=== PATIENT | male | born 1970 | race Hispanic/Latino ===

== ENCOUNTER 2023-01-15 08:29 | Observation (INO) | payer SELFPAY ==
[2023-01-15] VITALS (11 sets, daily range): BP systolic 143–173; BP diastolic 87–117
[~2023-01-15] VITALS: Ht 175.3 cm; Wt 88.0 kg
[~2023-01-15 08:29] MED LIST: PROTONIX40 MG PO
--- NOTE | 2023-01-15 08:29 | NUR ---
PATIENT PRESENTS WITH LEFT SIDED FACIAL NUMBNESS ALONG WITH WEAKNESS IN THE UPPER AND LOWER EXTREMITIES ON THE LEFT SDIDE. SN CALLED STROKE ALERT AT THIS TIME. MD AT THE BEDSIDE.
--- NOTE | 2023-01-15 08:35 | NUR ---
STROKE ALERT CALLED AND PATIENT TAKEN TO CT SCAN.
--- NOTE | 2023-01-15 09:10 | NUR ---
PATIENT RETURNED TO THE ED AT THIS TIME. SWALLOW SCREEN TO BE COMPLETED. EKG DONE AT THIS TIME.
[2023-01-15 09:17] LABS: ALBUMIN 4.6 g/dL (3.2-5.0); ALKALINE PHOSPHATASE 53 u/l (38-126); ANION GAP 13 (6-22 (CALC)); BILIRUBIN, TOTAL 1.4 mg/dL (0.2-1.3); BUN 7 mg/dL (9-20); BUN/CREATININE RATIO 8 (12-20 (CALC)); CALCULATED LDLCHOLESTEROL 119 mg/dL (62-129 (CALC)); CARBON DIOXIDE 27 mmol/l (22-30); CHLORIDE 105 mmol/l (95-108); CHOLESTEROL HDL RATIO 7.5 (<4.4 (CALC)); GFR FOR AFR.AMER. > 60 ML/MIN (>=60 (CALC)); GFR OTHER RACES > 60 ML/MIN (>=60 (CALC)); HDL CHOLESTEROL 30 mg/dL (39.0-59.0); SGOT/AST 52 u/l (17-59); SODIUM 141 mmol/l (137-146); TOTAL CHOLESTEROL 227 mg/dl (0-199); TOTAL PROTEIN 8.5 g/dL (6.3-8.2); TOTAL TRIGLYCERIDES 388 mg/dl (0-149); VLDL CHOLESTROL 78 mg/dl (8-62 (CALC))
[2023-01-15 09:26] LABS: INTERNATIONAL NORMALIZED RATIO 1.1 RATIO (0.7-1.3); PROTHROMBIN TIME 10.4 SECONDS (9.0-12.5)
[2023-01-15] MEDS ORDERED: SYNTHROID88 MCG PO (09:31)
[2023-01-15 09:36] LABS: BASO% 0.6 % (0-3); HEMATOCRIT 45.4 % (39.0-50.0); HEMOGLOBIN 15.7 g/dl (14.0-18.0); IMMATURE GRANULOCYTES 0.2 % (0.0-5.0); LYMPH% 36.4 % (15-41); MEAN CELL VOLUME 90.8 fL CALC (80.0-100.0); MEAN CORPUSCULAR HGB 31.4 pG CALC (26.0-32.0); MEAN CORPUSCULAR HGB CONC 34.6 g/dL CAL (32.0-36.0); MONO% 9.5 % (2-13); NEUT# 2.65 thou/uL (1.82-7.42); NEUT% 50.3 % (42-76); RED CELL DISTRI WIDTH 12.2 % (11.5-15.5)
--- NOTE | 2023-01-15 11:22 | NUR ---
VERBAL REPORT GIVEN TO KELLEY GUZMAN. PATIENT PLACED IN A WHEELCHAIR AND TAKEN TO MED-SURG
--- NOTE | 2023-01-15 11:22 | NUR ---
REPORT RECIEVED FROM INSPECTOR AND CLERKTHOMAS ALLEN
[2023-01-15 11:36] LABS: URINE BILIRUBIN - DIPSTICK Negative (NEGATIVE); URINE BLOOD DIPSTICK Negative (NEGATIVE); URINE GLUCOSE - DIPSTICK Negative (NEGATIVE); URINE KETONE Negative (NEGATIVE); URINE LEUK ESTERASE Negative (NEGATIVE); URINE NITRITE - DIPSTICK Negative (Negative); URINE PH 6.5 (4.5-8.0); URINE PROTEIN - DIPSTICK Negative (NEG-TRACE); URINE UROBILINOGEN - DIPSTICK 0.2 E.U./dL (0.2)
[2023-01-15 11:37] LABS: URINE COLOR Yellow
--- NOTE | 2023-01-15 11:39 | NUR ---
PT ARRIVED VIA WC WITH [employer] SUPERVISOR KITAOMNI PT ABLE TO AMBULATE TO BED VIA STAND BY. ORIENATTED PT TO ROOM AND CALL [facility]. ADMISSON ASSESSMENT COMNPLETED. TELE MONITO RIN PLACE. CONTINOUS MONITPR PER ED. FALL/SAFTEY PRECAUTION IN PLACE. CALL LIGHT WITHIN REACH
--- NOTE | 2023-01-15 16:05 | NUR ---
PT RESTING IN BED WITH FAMILY MEMBERS AT BEDSIDE. PT STATES NO PAIN. FALL/SAFTEY PRECAUTION IN PLACE, CALL LIGHT WITHIN REACH
--- NOTE | 2023-01-15 19:15 | NUR ---
REPORT RECEIVED FROM FROM Lb BUSH RN
--- NOTE | 2023-01-15 20:00 | NUR ---
PATIENT RESTING, FAMILY AT BEDSIDE.
--- NOTE | 2023-01-16 | NUR ---
PATIENT RESTING IN BED, NO APPARENT DISTRESS NOTED. RESPIRATIONS EVEN AND UNLABORED. RISE AND FALL OF CHEST NOTED. CALL LIGHT AND BEDSIDE TABLE WITHIN REACH.
[2023-01-16 00:29] VITALS: BP 119/76
[2023-01-16 04:06] VITALS: BP 122/80
--- NOTE | 2023-01-16 04:56 | NUR ---
LAB AT BEDSIDE OBTAINING MORNING LABS
[2023-01-16 06:23] LABS: HEMATOCRIT 43.3 % (39.0-50.0); HEMOGLOBIN 15.3 g/dl (14.0-18.0); MEAN CELL VOLUME 89.3 fL CALC (80.0-100.0); MEAN CORPUSCULAR HGB 31.5 pG CALC (26.0-32.0); MEAN CORPUSCULAR HGB CONC 35.3 g/dL CAL (32.0-36.0); RED BLOOD COUNT 4.85 mill/uL (4.70-6.10); RED CELL DISTRI WIDTH 12.1 % (11.5-15.5)
[2023-01-16 06:49] VITALS: BP 138/91
[2023-01-16 06:50] VITALS: BP 141/90
[2023-01-16 06:53] LABS: ANION GAP 14 (6-22 (CALC)); BUN 12 mg/dL (9-20); BUN/CREATININE RATIO 14 (12-20 (CALC)); CALCULATED LDLCHOLESTEROL 151 mg/dL (62-129 (CALC)); CARBON DIOXIDE 24 mmol/l (22-30); CHLORIDE 105 mmol/l (95-108); CHOLESTEROL HDL RATIO 6.6 (<4.4 (CALC)); CREATININE 0.9 mg/dL (0.7-1.3); GFR FOR AFR.AMER. > 60 ML/MIN (>=60 (CALC)); GFR OTHER RACES > 60 ML/MIN (>=60 (CALC)); HDL CHOLESTEROL 33 mg/dL (39.0-59.0); MAGNESIUM 2.2 mg/dL (1.6-2.3); POTASSIUM 4.3 mmol/l (3.5-5.1); SODIUM 139 mmol/l (137-146); TOTAL CHOLESTEROL 221 mg/dl (0-199); TOTAL TRIGLYCERIDES 182 mg/dl (0-149); VLDL CHOLESTROL 36 mg/dl (8-62 (CALC))
--- NOTE | 2023-01-16 08:04 | NUR ---
BEDSIDE SHIFT REPORT, PT AWAKE ALERT AND ORIENTED SITTING UP IN BED, DENIES DISCOMFORT, TELE MONITOR IN PLACE, CALL [facility] IN REACH AND BED LOCKED IN LOWEST POSITION.
[2023-01-16 10:51] VITALS: BP 141/82
[2023-01-16 10:52] VITALS: BP 141/82
[2023-01-16] MEDS ORDERED: PLAVIX75 MG PO (14:14)
[2023-01-16] MEDS ORDERED: ASPIRIN81 MG PO (14:15)
[2023-01-16] MEDS ORDERED: ATORVASTATIN CA40 MG PO (14:15)
--- NOTE | 2023-01-16 15:31 | NUR ---
Discharge instructions given. Patient verbalizes understanding of same. Discharged in good condition via Ambulatory to Home with *Other. All belongings sent with pt.
== END 2023-01-16 15:28 | disposition home or self-care (01) | DRG 948 ==
LOC: ED 08:29 → ED-I 08:59 → ED 08:59 → ED-I 08:59 → ED 09:01 → MS2 09:02
PROVIDERS: Family Medicine; ADMIT Student in an Organized Health Care Education/Training Program; ATTEND Student in an Organized Health Care Education/Training Program
DX: R53.1 Weakness (principal); R20.2 Paresthesia of skin; I10 Essential (primary) hypertension; E03.9 Hypothyroidism, unspecified; E78.5 Hyperlipidemia, unspecified
CPT/HCPCS: G0378; Q9967